=== PATIENT | male | born 1975 | race Caucasian/White ===

== ENCOUNTER → 2016-03-04 | Outpatient (CLI) | payer BC, OTHER ==
--- NOTE | 2016-03-04 14:02 | DIAGNOSTIC IMAGING REPORT ---
LEFT FOURTH FINGER 3 VIEWS HISTORY: Left fourth finger injury. SWOLLEN FINGER COMPARISON: None. FINDINGS: Small lucency along the dorsal aspect of the base of the middle phalanx. This may represent slight avulsion of the periosteum. Soft tissue swelling at the PIP joint. No erosions identified. No radiopaque foreign bodies. No dislocation. IMPRESSION: Suspect avulsion of the periosteum at the dorsal base of the middle phalanx. Soft tissue swelling at the PIP joint. Electronically signed by: Joni Peterson M.D. 03/04/2016 2:00 PM Dictated Date/Time: 03/04/2016 1:56 PM
== END | disposition home or self-care (01) ==
LOC: C.RAD1850 13:35
PROVIDERS: ATTEND Student in an Organized Health Care Education/Training Program
DX: M79.89 Other specified soft tissue disorders (principal)